=== PATIENT | male | born 1970 | race Caucasian/White ===

== ENCOUNTER 2023-05-13 07:53 | Day surgery (SDC) | payer OTHER ==
[2023-05-13 09:00] VITALS: BP 136/82; PULSE 65; RESP 14
[2023-05-13] MEDS ORDERED: COSYNTROPIN 0.25 MG VIAL IVP ONE (09:00)
[2023-05-13 09:15] VITALS: BP 142/78; PULSE 63; RESP 13
[2023-05-13 10:00] VITALS: BP 144/89; PULSE 64; RESP 15
[2023-05-13 10:30] VITALS: BP 134/81; PULSE 66; RESP 15
[2023-05-13 10:47] VITALS: BP 136/85; PULSE 67; RESP 14
== END 2023-05-13 10:30 | disposition home or self-care (01) ==
LOC: DAH 07:53
PROVIDERS: ATTEND Internal Medicine Endocrinology, Diabetes & Metabolism
DX: F43.0 Acute stress reaction (principal); F41.9 Anxiety disorder, unspecified; M54.2 Cervicalgia; J44.9 Chronic obstructive pulmonary disease, unspecified; K21.9 Gastro-esophageal reflux disease without esophagitis; F32.A Depression, unspecified
CPT/HCPCS: 80400 ×3; 96374; 82533 ×3; 36415; J0834; A4215; A4223; A4221; A4663; A4216; A4606